=== PATIENT | male | born 1970 | race Caucasian/White ===

== ENCOUNTER → 2019-08-28 16:51 | Outpatient (CLI) | payer MEDICAID, SELFPAY ==
--- NOTE | 2019-08-28 | FLU_PTH ---
PATIENT: ALY BLAND LOC: [facility] U#:[id number] AGE/SX: 55/M ROOM: RE08/28/[address]: Dr. Zabrina Wilder MD : 1970 BED: DIS: SPEC #: [id number] RECD: 08/28/19 16:51 STATUS: JOVITA ALLY #: [id number] CARLY: 08/28/19 00:[address]: Zabrina Wilder DEPT: CYTOLOGY RECD BY: Ramón Ramirez Tissues: A - Thyroid gland, NOS B - Thyroid gland, NOS Procedures: Special Stain Group II Surgery Specimen Level IV Cytospin Fluid Cytology Other HEADER OPERATION: Ultrasound-guided fine needle aspiration right thyroid PRE-OP DIAGNOSIS: Right thyroid nodule TISSUE SUBMITTED: A - FNA right thyroid for cytology, B - FNA right thyroid slides x6 DIAGNOSIS CYTOLOGY A. Right thyroid nodule fluid, ultrasound-guided FNA (cytospin and cell block): Consistent with benign colloid nodule. B. Right thyroid nodule, ultrasound-guided FNA (smears): Consistent with benign colloid nodule. Adequate for evaluation. SJ:mirella 08/30/19 COMMENT Correlation with clinical, radiologic findings and appropriate follow up are necessary. CYTOLOGY STUDY Slides are reviewed. CYTOLOGY GROSS A - Received is 35 ml of cloudy colorless fluid labeled with the patient's name and and designated per the requisition as right thyroid. Submitted for cytology preparation including cell block. B - Received are six smears labeled with the patient's name and designated per the requisition as right thyroid. Submitted for staining. / rg 08/29/19 TC:5 CPT: 71450, 37893, 76608
== END ==
PROVIDERS: Referring Provider Surgery; Visit Provider Surgery
DX: E04.1 Nontoxic single thyroid nodule (principal)
CPT/HCPCS: 88108; 88161; 88305; 88313